=== PATIENT | female | born 1990 | race African-American/Black ===

== ENCOUNTER 2018-06-19 20:49 | Emergency (ER) | payer MEDICAID ==
[~2018-06-19] VITALS: Ht 172.7 cm; Wt 95.3 kg
[2018-06-19 20:57] VITALS: BP 132/93
[2018-06-19] MEDS ORDERED: KETOROLAC TROMETH 60MG/2ML VIAL IM ONE (23:45)
[2018-06-19] MEDS ORDERED: methylPREDNISolone SOD SUCC 125 MG/2 ML VL IM ONE (23:45)
== END 2018-06-20 00:42 | disposition home or self-care (01) ==
LOC: ER 20:55
DX: M54.5 Low back pain (principal); M62.838 Other muscle spasm; Z91.041 Radiographic dye allergy status; X50.1XXA Overexertion from prolonged static or awkward postures, initial encounter; Y93.89 Activity, other specified; Y92.89 Other specified places as the place of occurrence of the external cause; Y99.8 Other external cause status
CPT/HCPCS: 96372; 99284; J1885; J2930